=== PATIENT | female | born 1990 | race American Indian/Alaskan Native ===

== ENCOUNTER 2020-11-25 00:36 | Emergency (ER) | payer MEDICAID, OTHER ==
[~2020-11-25] VITALS: Ht 152.4 cm; Wt 44.0 kg
[2020-11-25 00:37] VITALS: BP 109/74
== END 2020-11-25 01:59 | disposition left against medical advice (07) ==
LOC: ER 00:36
DX: S30.864A Insect bite (nonvenomous) of vagina and vulva, initial encounter (principal); Z53.21 Procedure and treatment not carried out due to patient leaving prior to being seen by health care provider; W57.XXXA Bitten or stung by nonvenomous insect and other nonvenomous arthropods, initial encounter; Y93.89 Activity, other specified; Y92.89 Other specified places as the place of occurrence of the external cause; Y99.8 Other external cause status